=== PATIENT | male | born 1995 | race African-American/Black ===

== ENCOUNTER 2017-05-08 20:47 | Inpatient (IN) | payer OTHER ==
[~2017-05-08] VITALS: Ht 175.3 cm; Wt 127.4 kg
[2017-05-08 21:41] LABS: HEMATOCRIT 46.3 % (38.0-50.0); MCH 27.1 PG (29.0-34.0); MCHC 33.9 G/DL (30.0-36.0); MCV 79.8 FL (86-99); MEAN PLAT.VOLUME 9.2 uM^3 (9.0-12.4); PLATELET COUNT 580 K/uL (156-360); RBC DIS.WIDTH-CV 12.6 % (11.8-14.6); RBC DIS.WIDTH-SD 35.8 % (39-53); WHITE BLOOD COUNT 18.1 K/uL (4.1-10.2)
[2017-05-08 21:51] LABS: CHLORIDE 107 mEq/L (99-109); POTASSIUM 3.7 mEq/L (3.7-5.4); SODIUM 142 mEq/L (136-147)
[2017-05-08 21:52] LABS: GLUCOSE 102 mg/dL (70-99)
[2017-05-08 21:54] LABS: ANION GAP 11 MEQ/L (2-14)
[2017-05-08 21:56] LABS: GFR ESTIMATE (CALCULATED) > 59 mL/min/
[2017-05-08 21:57] LABS: UREA NITROGEN (BUN) 13 mg/dL (9-23)
[2017-05-08 23:00] LABS: ADD MIUA? NO; BILIRUBIN NEGATIVE; BLOOD NEGATIVE; COLOR YELLOW ((YELLOW)); GLUCOSE (STRIP) NEGATIVE; KETONES NEGATIVE; LEUKOCYTES NEGATIVE; NITRITE NEGATIVE; PROTEIN (STRIP) 30; SPECIFIC GRAVITY 1.025 (1.000-1.030); UCUL ADDED? NO; UROBILINOGEN 0.2 MG/DL (0.2-1.0)
[2017-05-08 23:47] LABS: C-REACTIVE PROTEIN 4.7 MG/L (0-10)
[2017-05-09 04:05] VITALS: BP 131/80
[2017-05-09 07:30] VITALS: BP 108/57
[2017-05-09 11:50] VITALS: BP 111/54
[2017-05-09 15:45] VITALS: BP 110/72
[2017-05-09 19:56] VITALS: BP 101/57
[2017-05-09 23:50] VITALS: BP 116/60
[2017-05-10 03:43] VITALS: BP 122/64
[2017-05-10 07:18] VITALS: BP 147/78
[2017-05-10 11:10] VITALS: BP 129/78
[2017-05-10] MEDS ORDERED: ENDOCET 5-3251 EACH PO (11:41)
== END 2017-05-10 12:20 | disposition home or self-care (01) | DRG 343 ==
LOC: EME 20:47 → SDC 05-09 01:01 → EME 05-09 01:01 → 2EAST 05-09 03:33 → 2SOUTH 05-09 03:33 → ENRESERV 05-09 03:35 → 2EAST 05-09 04:02
PROC: 0DTJ0ZZ Resection of Appendix, Open Approach (ICD-10-PCS; principal; 2017-05-09)
DX: K35.80 Unspecified acute appendicitis (principal); Z87.891 Personal history of nicotine dependence
CPT/HCPCS: 74176; 80048; 81003; 85027; 86140; 88304; 99281; 99285; J0131; J0330; J1100; J1650; J1885; J2270; J2405; J2710; J3010; J7050; J7120; S0074